=== PATIENT | female | born 1960 | race Caucasian/White ===

== ENCOUNTER → 2021-03-02 | Outpatient (CLI) | payer OTHER ==
--- NOTE | 2021-03-02 16:27 | RAD ---
EXAM: BILATERAL DIGITAL SCREENING MAMMOGRAPHY. HISTORY: Routine mammographic screening. TECHNIQUE: Bilateral full field digital images were obtained in CC and MLO projections. Computer-aide d detection was applied. COMPARISON: None available. This is interpreted as a baseline study. COMPOSITION: B. There are scattered areas of fibroglandular density. FINDINGS: A 6 mm nodule at the left 3:00 position is partially circumscribed and partially obscured. Another 4 mm nodule inferior to the nipple line on the left MLO view has no clear correlate on the CC view. Superolaterally on the left, a nodule contains clustered likely benign calcifications. There is no suspicious finding on the right. Scattered calcifications are benign. BI-RADS CATEGORY 0: Incomplete--Needs Additional Imaging Evaluation. RECOMMENDATION: 1. Magnification of a nodule containing calcifications superolaterally on the left. Sonography of thi s nodule. 2. Sonography of the left 3:00 position and the inferior breast to assess 2 additional nodules as abo ve. See annotations. Electronically signed by: Diego Oh MD (03/02/2021 4:24 PM) [id number]
== END ==
LOC: MAMMO 13:50
PROVIDERS: ATTEND Preventive Medicine Occupational Medicine
DX: Z12.31 Encounter for screening mammogram for malignant neoplasm of breast (principal); N63.23 Unspecified lump in the left breast, lower outer quadrant
CPT/HCPCS: 77067

== ENCOUNTER → 2021-04-21 | Outpatient (CLI) | payer OTHER ==
--- NOTE | 2021-04-22 18:30 | RAD ---
EXAMINATION: MG DIAGNOSTICUNILAT MAMMO, US BREAST LT History: Called back from screening mammogram for left breast masses and calcifications Comparison: Screening mammogram 03/02/2021 Technique: Diagnostic left breast mammogram with spot magnification and full field MLO view of the le ft breast was performed. Subsequent ultrasound of the outer left breast performed in the areas of con cern. Findings: Breast Tissue Density B : There are scattered areas of fibroglandular density. The calcifications in the upper outer left breast have amorphous morphology and do not layer. Ultrasound of the left breast demonstrates an anechoic cyst at 3:00 4 cm from the nipple measuring 4 x 5 mm. At 5:00, 4 cm from nipple there is a ovoid hypoechoic structure measuring 3 x 4 x 3 mm, likel y clustered microcysts or fibrocystic changes. IMPRESSION: 1. Suspicious amorphous calcifications in the upper outer left breast. Recommend stereotactic guided biopsy. 2. Simple cyst at 3:00 and probably benign clustered microcysts or fibrocystic change at 5:00. Recomm end 6 month follow-up ultrasound to ensure stability. BI-RADS Category 4: Suspicious. RECOMMENDATION: 1. Stereotactic guided biopsy of suspicious upper outer left breast calcifications. 2. 6 month follow-up ultrasound of probably benign cystic lesions in the lower outer left breast. Electronically signed by: Justine Gongora MD (04/22/2021 6:28 PM) [email or web address]
== END ==
LOC: MAMMO 13:12
PROVIDERS: ATTEND Preventive Medicine Occupational Medicine
DX: N60.02 Solitary cyst of left breast (principal); N63.0 Unspecified lump in unspecified breast
CPT/HCPCS: 76641; 77065